=== PATIENT | male | born 1960 | race Caucasian/White ===

== ENCOUNTER 2019-09-09 00:52 | Emergency (ER) | payer OTHER ==
[2019-09-09] MEDS ORDERED: Diphtheria,Pertussis(Acell),Tetanus Vaccine 0.5 ML Syringe IM ONE (01:21)
--- NOTE | 2019-09-09 01:23 | EDM.PDOC ---
ED HPI GENERAL MEDICAL PROBLEM - General Chief Complaint: Laceration Stated Complaint: laceration Time Seen by Provider: 09/09/19 01:09 Source of Information: Reports: Patient, Family - History of Present Illness INITIAL COMMENTS - FREE TEXT/NARRATIVE: Philip is a 59 y/o male who presents to the ER with a scalp laceration that he sustained tonight when he fell in the home he was staying at. He did have some alcohol tonight to drink, but was able to get up and woke up a friend to bring him to the ER. Head Pain Score (Numeric/FACES): 1 - Related Data Allergies Allergy/AdvReac Type Severity Reaction Status Date / Time No Known Allergies Allergy Verified 01/12/19 08:59 Past Medical History Cardiovascular History: Reports: Hypertension Social & Family History - Family History Family Medical History: Noncontributory - Tobacco Use Used Tobacco, but Quit: No - Caffeine Use Caffeine Use: Reports: None ED ROS GENERAL - Review of Systems Review Of Systems: See Below Constitutional: Reports: No Symptoms HEENT: Reports: No Symptoms Respiratory: Reports: No Symptoms Cardiovascular: Reports: No Symptoms Endocrine: Reports: No Symptoms GI/Abdominal: Reports: No Symptoms : Reports: No Symptoms Musculoskeletal: Reports: No Symptoms Skin: Reports: Other (Scalp laceration) Neurological: Reports: No Symptoms Psychiatric: Reports: No Symptoms Hematologic/Lymphatic: Reports: No Symptoms Immunologic: Reports: No Symptoms ED EXAM, SKIN/RASH Exam: See Below General Appearance: Alert, WD/WN, No Apparent Distress, Other (Adult male, NAD. Pleasant and chatting away with staff.) Eye Exam: Bilateral Eye: PERRL Ears: Hearing Grossly Normal Nose: Normal Inspection Throat/Mouth: Normal Inspection, Normal Lips, Normal Teeth Head: Normocephalic, Other (Note stellate type laceration to occipatal region, mildly bleeding.) Neck: Normal Inspection, Supple, Non-Tender Respiratory/Chest: No Respiratory Distress Cardiovascular: Regular Rate, Rhythm GI/Abdominal: Soft, Non-Tender (Male) Exam: Deferred Rectal (Males) Exam: Deferred Extremities: Normal Inspection Neurological: Alert, Oriented, CN II-XII Intact, Normal Cognition, Normal Gait Psychiatric: Normal Affect, Normal Mood Skin: Warm, Dry, Intact, Normal Color Lymphatic: No Adenopathy ED SKIN PROCEDURES - Laceration/Wound Repair Occipital Appearance: Stellate, Irregular Anesthetic Type: Other (None) Skin Prep: Saline Exploration/Debridement/Repair: Wound Explored, No Foreign Material Found Closed with: [place] Lac/Wound length In cm: 4.5 # of Sutures: 20 Suture Type: Other ([place]) Sterile Dressing Applied: Nurse Tetanus Status Addressed: Other (Last Tetanus 03/15/2005) Complications: No Progress/Comments: Yamile used for wound closure, hemostasis obtained. Patient tolerated procedure well. Course - Vital Signs Text/Narrative:: The patient was seen by the [facility]. The laceration was repaired. See the Procedure Note. Patient offered tetanus update tonight, but declines. Patient clinically sober and can walk and talk appropriately. He was given discharge instructions and left the ER in stable condition with sober friend. Last Recorded V/S: Last Vital Signs Temp 36.2 C 09/09/19 00:53 Pulse 85 09/09/19 00:53 Resp 16 09/09/19 00:53 BP 145/108 H 09/09/19 00:53 Pulse Ox 98 09/09/19 00:53 Departure - Departure Time of Disposition: 01:27 Disposition: Home, Self-Care 01 Condition: Good Clinical Impression: Scalp laceration - Discharge Information *PRESCRIPTION DRUG MONITORING PROGRAM REVIEWED*: No *COPY OF PRESCRIPTION DRUG MONITORING REPORT IN PATIENT ESTELLA: No Instructions: Stitches, Yamile, or Adhesive Wound Closure, [id number] Additional Instructions: -Keep wound clean daily with soap and water. Pat dry. Washing your hair is just fine to keep the wound clean. -After you remove the pressure dressing later this AM, you may leave the laceration open to the air. -Watch for signs of infection including redness or drainage. -Your last documented tetanus was 03/15/2005. You were offered a repeat tetanus immunizations tonight, but you declined. You are due for the injection and can go to the your clinic to get it done, it is best to do this in 72 hours on an injury. -Use ibuprofen or acetaminophen as needed for pain. -Follow up in the clinic on your choice to have yamile removed in 7 days. -Return to the ER for any concerns. Sepsis Event Note - Evaluation Sepsis Screening Result: No Definite Risk - Focused Exam Vital Signs: Vital Signs Temp Pulse Resp BP Pulse Ox 09/09/19 00:53 36.2 C 85 16 145/108 H 98 Date Exam was Performed: 09/09/19 Time Exam was Performed: 01:18
== END 2019-09-09 01:35 | disposition home or self-care (01) ==
LOC: VM.ED 00:52
DX: S01.01XA Laceration without foreign body of scalp, initial encounter (principal); I10 Essential (primary) hypertension; W19.XXXA Unspecified fall, initial encounter; Y92.009 Unspecified place in unspecified non-institutional (private) residence as the place of occurrence of the external cause
CPT/HCPCS: 12002; 99282; 99283-GF